=== PATIENT | female | born 1940 | race African-American/Black ===

== ENCOUNTER 2017-08-25 08:44 | Inpatient (IN) ==
[2017-08-25] MEDS ORDERED: SODIUM CHLORIDE 0.9% 1,000 ML IV STA (09:32)
[2017-08-25] MEDS ORDERED: ONDANSETRON 4 MG/2 ML VIAL IV STA (09:32)
[2017-08-25] MEDS ORDERED: ONDANSETRON 4 MG/2 ML VIAL ONE (09:49)
[2017-08-25 10:35] LABS: Apearance,Urine Slightly Hazy (Clear); Bacteria,Urine Occasional /HPF (Few); Bilirubin,Urine Negative (Negative); Blood, Urine Negative (Negative); Glucose,Urine (UA) Negative (Negative); Hyaline Casts,Urine 13 /LPF (0-3); Ketones,Urine 5 mg/dL (Negative); Mucus,Urine Few /LPF (Occasional); Nitrite,Urine Negative (Negative); Protein,Urine 30 MG/DL; RBC,Urine <1 /HPF (0-4); Squamous Epithelial Cell,Urine Occasional /HPF (0-10); Urine Color Dark Yellow (Yellow); Urine Specific Gravity 1.032 (1.001-1.035); Urine Urobilinogen < 2.0 EU/DL (0.2-1.0); WBC,Urine 3 /HPF (0-6)
[2017-08-25 11:06] LABS: Albumin 2.7 G/DL (3.4-5.0); Bilirubin,Total 0.5 MG/DL (0.2-1.0); Calcium 8.7 MG/DL (8.5-10.1); Osmolality,Calculated 268.4 MOS/KG (273-304); Potassium 4.8 MMOL/L (3.5-5.1); Total Protein 7.8 G/DL (6.4-8.3)
[2017-08-25 11:32] LABS: Basophils % 0.7 % (0.0-0.8); Eosinophils # 0.1 10*3/uL (0.0-0.87); Eosinophils % 9.5 % (0.00-10.9); Hemoglobin 9.7 GM/DL (12.0-16.0); Immature Granulocytes % 0.7 %; Immature Granulocytes Absolute 0.01 #; Lymphocytes # 0.7 10*3/uL (1.4-4.0); Lymphocytes % 48.6 % (21.3-54.2); Mean Corpuscular HGB Conc 33.4 GM/DL (32-36); Mean Corpuscular Hemoglobin 27 PG (27-34); Mean Corpuscular Volume 81.7 FL (87-102); Mean Platelet Volume 11.6 FL (9.6-12.0); Monocytes # 0.2 10*3/uL (0.11-0.8); Monocytes % 15.5 % (1.7-12.7); Neutrophils # 0.4 10*3/uL (1.4-7.4); Red Blood Count 3.55 MC/CUMM (3.8-5.5); Red Cell Distribution Width 13.9 % (9.3-17.3); White Blood Count 1.5 T/CUMM (4-12)
[2017-08-25 11:42] LABS: Platelet Count 65 T/CUMM (130-400)
[2017-08-25 12:09] LABS: Eosinophils 9 % (0-10); Giant Platelets Few; Hypochromasia 1+; Lymphocytes 52 % (20-55); Ovalocytes Slight; Platelet Estimate Decreased; Segmented Neutrophils 20 % (50-85); Total Cells Counted 100
[2017-08-25] MEDS ORDERED: chlorproMAZINE INJ 25 MG in SODIUM CHLORIDE 0.9% 100 ML IV PRN (13:36)
[2017-08-25] MEDS ORDERED: chlorproMAZINE 25 MG TABLET PO PRN (13:36)
[2017-08-25] MEDS ORDERED: ALPRAZolam 0.25 MG TABLET PO PRN (13:36)
[2017-08-25] MEDS ORDERED: chlorproMAZINE INJ 50 MG in SODIUM CHLORIDE 0.9% 100 ML IV PRN (13:36)
[2017-08-25] MEDS ORDERED: BENZTROPINE 2 MG/2 ML AMP IV PRN (13:36)
[2017-08-25] MEDS ORDERED: GLUCAGON 1 MG VIAL IM PRN (13:36)
[2017-08-25] MEDS ORDERED: ONDANSETRON 4 MG/2 ML VIAL IV PRN (13:36)
[2017-08-25] MEDS ORDERED: LACTULOSE 20 GM/30 ML UDCUP PO PRN (13:36)
[2017-08-25] MEDS ORDERED: MYLANTA/LIDO VISC 2:1 300 ML BOTTLE SWISH/SWAL PRN (13:36)
[2017-08-25] MEDS ORDERED: ALUMINUM/MAGNES/SIMETH MAX STR 30 ML UDCUP PO PRN (13:36)
[2017-08-25] MEDS ORDERED: DEXTROSE 50% 25 GM/50 ML VIAL IV PRN (13:36)
[2017-08-25] MEDS ORDERED: TEMAZEPAM 7.5 MG CAPSULE PO PRN (13:36)
[2017-08-25] MEDS ORDERED: traMADol 50 MG TABLET PO PRN (13:36)
[2017-08-25] MEDS ORDERED: MAGNESIUM HYDROXIDE SUSP 30 ML UDCUP PO PRN (13:36)
[2017-08-25] MEDS ORDERED: MYLANTA/LIDO VISC 2:1 300 ML BOTTLE SWISH/SPIT PRN (13:36)
[2017-08-25] MEDS ORDERED: diphenhydrAMINE CAP 25 MG CAPSULE PO PRN (13:36)
[2017-08-25] MEDS ORDERED: ACETAMINOPHEN 325 MG TABLET PO PRN (13:36)
[2017-08-25] MEDS ORDERED: SODIUM CHLORIDE 0.9% 1,000 ML IV SCH (13:36)
[2017-08-25] MEDS ORDERED: guaiFENesin 200 MG/10 ML UDCUP PO PRN (13:36)
[2017-08-25] MEDS ORDERED: LOPERAMIDE 2 MG CAPSULE PO PRN ×2 (13:36)
[2017-08-25] MEDS ORDERED: PROMETHAZINE INJ 25 MG in SODIUM CHLORIDE 0.9% 50 ML IV PRN (13:36)
[2017-08-25] MEDS: PANTOPRAZOLE 40 MG TABLET PO SCH (14:36)
[2017-08-25] MEDS: FILGRASTIM-SNDZ 300 MCG/0.5 ML SYRINGE SUBCUT SCH (14:36)
[2017-08-25] MEDS ORDERED: ONDANSETRON ODT 4 MG TABLET PO PRN (16:28)
[2017-08-25] MEDS ORDERED: INSULIN LISPRO 100 UNIT/ML SUBCUT SCH (16:30)
[2017-08-25] MEDS: DEXT 5% NACL 0.45% KCL 20 MEQ 20 MEQ/1,000 ML BAG IV SCH (18:43)
[2017-08-25] MEDS: LOSARTAN 25 MG TABLET PO SCH (21:14)
[2017-08-25] MEDS: CARVEDILOL 3.125 MG TABLET PO SCH (21:14)
[2017-08-26] MEDS: DEXT 5% NACL 0.45% KCL 20 MEQ 20 MEQ/1,000 ML BAG IV SCH ×2 (02:48→11:09)
[2017-08-26 05:32] LABS: Basophils % 0.4 % (0.0-0.8); Eosinophils # 0.3 10*3/uL (0.0-0.87); Hematocrit 27.1 VOL% (35.7-47.0); Hemoglobin 8.8 GM/DL (12.0-16.0); Immature Granulocytes % 0.7 %; Immature Granulocytes Absolute 0.02 #; Lymphocytes % 35.2 % (21.3-54.2); Mean Corpuscular HGB Conc 32.5 GM/DL (32-36); Mean Corpuscular Hemoglobin 27 PG (27-34); Mean Corpuscular Volume 83.4 FL (87-102); Mean Platelet Volume 11.5 FL (9.6-12.0); Monocytes # 0.4 10*3/uL (0.11-0.8); Monocytes % 14.6 % (1.7-12.7); NRBC # 0.03 10*3/uL; Neutrophils # 1.1 10*3/uL (1.4-7.4); Neutrophils % 38.1 % (38.7-73.9); Platelet Count 65 T/CUMM (130-400); Red Blood Count 3.25 MC/CUMM (3.8-5.5); Red Cell Distribution Width 14.1 % (9.3-17.3); White Blood Count 2.8 T/CUMM (4-12)
[2017-08-26 06:09] LABS: Band Neutrophils 2 % (0-10); Eosinophils 11 % (0-10); Hypochromasia 1+; Lymphocytes 36 % (20-55); Microcytosis 1+; Ovalocytes Slight; Platelet Estimate Decreased; Segmented Neutrophils 38 % (50-85); Total Cells Counted 100
[2017-08-26 06:21] LABS: Alanine Aminotransferase < 9 U/L (13-56); Alkaline Phosphatase 35 U/L (45-117); Aspartate Amino Transferase 14 U/L (0-37); Blood Urea Nitrogen 11 MG/DL (7-18); Calcium 7.4 MG/DL (8.5-10.1); Glucose 116 MG/DL (74-106); Potassium 4.2 MMOL/L (3.5-5.1); Sodium 136 MMOL/L (136-145); Total Protein 6.1 G/DL (6.4-8.3)
[2017-08-26] MEDS ORDERED: SODIUM CHLORIDE 0.9% 1,000 ML IV PRN (07:26)
[2017-08-26] MEDS: PANTOPRAZOLE 40 MG TABLET PO SCH (09:01)
[2017-08-26] MEDS: FILGRASTIM-SNDZ 300 MCG/0.5 ML SYRINGE SUBCUT SCH (09:01)
[2017-08-26] MEDS: CARVEDILOL 3.125 MG TABLET PO SCH ×2 (09:01→20:00)
[2017-08-26] MEDS: TAMOXIFEN 10 MG TABLET PO SCH (09:01)
[2017-08-26] MEDS: LOSARTAN 25 MG TABLET PO SCH (20:00)
[2017-08-27] MEDS: DEXT 5% NACL 0.45% KCL 20 MEQ 20 MEQ/1,000 ML BAG IV SCH ×2 (00:45→04:10)
[2017-08-27 04:58] LABS: Hematocrit 34.8 VOL% (35.7-47.0); Red Blood Count 4.25 MC/CUMM (3.8-5.5); White Blood Count 7.5 T/CUMM (4-12)
[2017-08-27 04:59] LABS: Basophils % 0.4 % (0.0-0.8); Eosinophils # 0.7 10*3/uL (0.0-0.87); Eosinophils % 8.9 % (0.00-10.9); Immature Granulocytes % 1.6 %; Immature Granulocytes Absolute 0.12 #; Lymphocytes # 1.9 10*3/uL (1.4-4.0); Lymphocytes % 24.6 % (21.3-54.2); Mean Corpuscular HGB Conc 34.5 GM/DL (32-36); Mean Corpuscular Hemoglobin 28 PG (27-34); Mean Corpuscular Volume 81.9 FL (87-102); Mean Platelet Volume 11.2 FL (9.6-12.0); Monocytes # 0.5 10*3/uL (0.11-0.8); Monocytes % 6.8 % (1.7-12.7); Neutrophils # 4.3 10*3/uL (1.4-7.4); Neutrophils % 57.7 % (38.7-73.9); Platelet Count 81 T/CUMM (130-400)
[2017-08-27 05:16] LABS: Albumin 2.1 G/DL (3.4-5.0); Bilirubin,Total 0.9 MG/DL (0.2-1.0); Calcium 7.3 MG/DL (8.5-10.1); Osmolality,Calculated 271.8 MOS/KG (273-304); Potassium 4.3 MMOL/L (3.5-5.1); Total Protein 6.2 G/DL (6.4-8.3)
[2017-08-27 05:18] LABS: Burr Cells Slight; Eosinophils 14 % (0-10); Hypochromasia 1+; Lymphocytes 25 % (20-55); Nucleated Red Blood Cells 1 (0-5); Ovalocytes Slight; Platelet Estimate Decreased; Segmented Neutrophils 55 % (50-85); Total Cells Counted 100
[2017-08-27 05:19] LABS: Giant Platelets Few; Microcytosis Slight
[2017-08-27] MEDS: CARVEDILOL 3.125 MG TABLET PO SCH ×2 (09:12→21:20)
[2017-08-27] MEDS: TAMOXIFEN 10 MG TABLET PO SCH (09:12)
[2017-08-27] MEDS: FILGRASTIM-SNDZ 300 MCG/0.5 ML SYRINGE SUBCUT SCH (09:12)
[2017-08-27] MEDS: PANTOPRAZOLE 40 MG TABLET PO SCH (09:12)
[2017-08-27] MEDS: LOSARTAN 25 MG TABLET PO SCH (19:23)
[2017-08-28] MEDS ORDERED: HEPARIN LOCK FLUSH 500 UNIT/5 ML SYRINGE IV ONE ×3 (04:12→13:15)
[2017-08-28 04:57] LABS: Basophils % 0.2 % (0.0-0.8); Eosinophils % 5.1 % (0.00-10.9); Hematocrit 34.3 VOL% (35.7-47.0); Hemoglobin 11.8 GM/DL (12.0-16.0); Immature Granulocytes % 3.4 %; Immature Granulocytes Absolute 0.66 #; Lymphocytes # 2.3 10*3/uL (1.4-4.0); Lymphocytes % 11.7 % (21.3-54.2); Mean Corpuscular HGB Conc 34.4 GM/DL (32-36); Mean Corpuscular Hemoglobin 28 PG (27-34); Mean Corpuscular Volume 82.3 FL (87-102); Mean Platelet Volume 11.6 FL (9.6-12.0); Monocytes # 0.9 10*3/uL (0.11-0.8); Monocytes % 4.3 % (1.7-12.7); Neutrophils # 14.8 10*3/uL (1.4-7.4); Neutrophils % 75.3 % (38.7-73.9); Platelet Count 119 T/CUMM (130-400); Red Blood Count 4.17 MC/CUMM (3.8-5.5); Red Cell Distribution Width 14.4 % (9.3-17.3); White Blood Count 19.6 T/CUMM (4-12)
[2017-08-28 05:22] LABS: Band Neutrophils 2 % (0-10); Bilirubin,Total 0.6 MG/DL (0.2-1.0); Calcium 7.5 MG/DL (8.5-10.1); Eosinophils 3 % (0-10); Lymphocytes 9 % (20-55); Potassium 4.3 MMOL/L (3.5-5.1); Segmented Neutrophils 84 % (50-85); Total Cells Counted 100; Total Protein 6.1 G/DL (6.4-8.3)
[2017-08-28 05:23] LABS: Burr Cells Slight; Giant Platelets Few; Hypochromasia 1+; Microcytosis Slight; Ovalocytes Slight; Platelet Estimate Decreased
[2017-08-28] MEDS: CARVEDILOL 3.125 MG TABLET PO SCH (09:03)
[2017-08-28] MEDS: PANTOPRAZOLE 40 MG TABLET PO SCH (09:03)
[2017-08-28] MEDS: TAMOXIFEN 10 MG TABLET PO SCH (09:03)
[2017-08-28] MEDS: FILGRASTIM-SNDZ 300 MCG/0.5 ML SYRINGE SUBCUT SCH (09:33)
[2017-08-28 11:45] VITALS: BP 95/65
== END 2017-08-28 14:00 | disposition home or self-care (01) | DRG 809 ==
LOC: N.ED 08:44 → N.EDINP 11:56 → N.4E 13:35
PROVIDERS: ADMIT Specialist; ATTEND Specialist

== ENCOUNTER 2017-12-17 07:00 | Observation (INO) ==
[2017-12-17] MEDS ORDERED: ONDANSETRON 4 MG/2 ML VIAL IV PRN (08:31)
[2017-12-17] MEDS ORDERED: BENZTROPINE 2 MG/2 ML AMP IV PRN (08:31)
[2017-12-17] MEDS ORDERED: TEMAZEPAM 7.5 MG CAPSULE PO PRN (08:31)
[2017-12-17] MEDS ORDERED: ACETAMINOPHEN 325 MG TABLET PO PRN (08:31)
[2017-12-17] MEDS ORDERED: LOPERAMIDE 2 MG CAPSULE PO PRN ×2 (08:31)
[2017-12-17] MEDS ORDERED: ALUMINUM/MAGNES/SIMETH MAX STR 30 ML UDCUP PO PRN (08:31)
[2017-12-17] MEDS ORDERED: MYLANTA/LIDO VISC 2:1 300 ML BOTTLE SWISH/SWAL PRN (08:31)
[2017-12-17] MEDS ORDERED: chlorproMAZINE INJ 50 MG in SODIUM CHLORIDE 0.9% 100 ML IV PRN (08:31)
[2017-12-17] MEDS ORDERED: chlorproMAZINE INJ 25 MG in SODIUM CHLORIDE 0.9% 100 ML IV PRN (08:31)
[2017-12-17] MEDS ORDERED: chlorproMAZINE 25 MG TABLET PO PRN (08:31)
[2017-12-17] MEDS ORDERED: MYLANTA/LIDO VISC 2:1 300 ML BOTTLE SWISH/SPIT PRN (08:31)
[2017-12-17] MEDS ORDERED: diphenhydrAMINE CAP 25 MG CAPSULE PO PRN (08:31)
[2017-12-17] MEDS ORDERED: traMADol 50 MG TABLET PO PRN (08:31)
[2017-12-17] MEDS ORDERED: MAGNESIUM HYDROXIDE SUSP 30 ML UDCUP PO PRN (08:31)
[2017-12-17] MEDS ORDERED: ALPRAZolam 0.25 MG TABLET PO PRN (08:31)
[2017-12-17] MEDS ORDERED: LACTULOSE 20 GM/30 ML UDCUP PO PRN (08:31)
[2017-12-17] MEDS ORDERED: PROMETHAZINE INJ 25 MG in SODIUM CHLORIDE 0.9% 50 ML IV PRN (08:31)
[2017-12-17] MEDS ORDERED: guaiFENesin 200 MG/10 ML UDCUP PO PRN (08:31)
[2017-12-17 08:33] LABS: Basophils # 0.1 10*3/uL (0.0-0.2); Basophils % 1.1 % (0.0-0.8); Eosinophils # 0.1 10*3/uL (0.0-0.87); Eosinophils % 2.1 % (0.00-10.9); Hematocrit 24.9 VOL% (35.7-47.0); Hemoglobin 8.6 GM/DL (12.0-16.0); Immature Granulocytes % 0.5 %; Immature Granulocytes Absolute 0.03 #; Lymphocytes # 1.4 10*3/uL (1.4-4.0); Lymphocytes % 25.5 % (21.3-54.2); Mean Corpuscular HGB Conc 34.5 GM/DL (32-36); Mean Corpuscular Hemoglobin 38 PG (27-34); Mean Corpuscular Volume 109.2 FL (87-102); Mean Platelet Volume 10.9 FL (9.6-12.0); Monocytes # 0.8 10*3/uL (0.11-0.8); Monocytes % 13.4 % (1.7-12.7); Neutrophils # 3.2 10*3/uL (1.4-7.4); Neutrophils % 57.4 % (38.7-73.9); Platelet Count 197 T/CUMM (130-400); Red Blood Count 2.28 MC/CUMM (3.8-5.5); Red Cell Distribution Width 14.2 % (9.3-17.3); White Blood Count 5.6 T/CUMM (4-12)
[2017-12-17 08:41] LABS: INR 1.1; PT Patient Result 11.4 SECS
[2017-12-17 08:57] LABS: Uric Acid 5.3 MG/DL (2.6-6.0)
[2017-12-17 09:01] LABS: Alanine Aminotransferase 11 U/L (13-56); Albumin 2.9 G/DL (3.4-5.0); Alkaline Phosphatase 33 U/L (45-117); Aspartate Amino Transferase 22 U/L (0-37); Bilirubin,Total < 0.39 MG/DL (0.2-1.0); Blood Urea Nitrogen 13 MG/DL (7-18); Calcium 8.3 MG/DL (8.5-10.1); Glucose 88 MG/DL (74-106); Osmolality,Calculated 277.4 MOS/KG (273-304); Potassium 3.9 MMOL/L (3.5-5.1); Sodium 140 MMOL/L (136-145); Total Protein 7.1 G/DL (6.4-8.3)
[2017-12-17 10:10] LABS: Apearance,Urine CLEAR (Clear); Bacteria,Urine Occasional /HPF (Few); Bilirubin,Urine Negative (Negative); Blood, Urine Negative (Negative); Glucose,Urine (UA) Negative (Negative); Ketones,Urine Negative (Negative); Nitrite,Urine Negative (Negative); Protein,Urine Negative; RBC,Urine 1 /HPF (0-4); Squamous Epithelial Cell,Urine Occasional /HPF (0-10); Urine Color Straw (Yellow); Urine Specific Gravity 1.005 (1.001-1.035); Urine Urobilinogen < 2.0 EU/DL (0.2-1.0); WBC,Urine 3 /HPF (0-6)
[2017-12-17] MEDS ORDERED: ALBUMIN 25% 12.5 GM in PREMIX 1 EACH IV PRN (11:37)
[2017-12-17] MEDS ORDERED: ALBUMIN 25% 12.5 GM/50 ML VIAL IV ONE (11:56)
[2017-12-17] MEDS ORDERED: HEPARIN LOCK FLUSH 500 UNIT/5 ML SYRINGE IV ONE ×2 (12:03→12:15)
[2017-12-17] MEDS ORDERED: MAGNESIUM SULF RIDER 2 GM in PREMIX 1 EACH IV ONE (13:33)
[2017-12-17] MEDS: ASCORBIC ACID 500 MG TABLET PO SCH ×2 (17:34→20:18)
[2017-12-17] MEDS: SPIRONOLACTONE 25 MG TABLET PO SCH (17:35)
[2017-12-17] MEDS: ASPIRIN EC 81 MG TABLET PO SCH (17:35)
[2017-12-17] MEDS: MAGNESIUM CHLORIDE 64 MG TABLET PO SCH ×2 (17:35→20:18)
[2017-12-17] MEDS: CARVEDILOL 3.125 MG TABLET PO SCH (20:18)
[2017-12-17] MEDS: LOSARTAN 25 MG TABLET PO SCH (20:18)
[2017-12-18 05:02] LABS: Basophils # 0.1 10*3/uL (0.0-0.2); Basophils % 0.9 % (0.0-0.8); Eosinophils # 0.1 10*3/uL (0.0-0.87); Eosinophils % 1.7 % (0.00-10.9); Hematocrit 22.8 VOL% (35.7-47.0); Hemoglobin 7.7 GM/DL (12.0-16.0); Immature Granulocytes % 0.3 %; Immature Granulocytes Absolute 0.02 #; Lymphocytes % 34.2 % (21.3-54.2); Mean Corpuscular HGB Conc 33.8 GM/DL (32-36); Mean Corpuscular Hemoglobin 37 PG (27-34); Mean Corpuscular Volume 110.7 FL (87-102); Mean Platelet Volume 10.6 FL (9.6-12.0); Monocytes # 0.9 10*3/uL (0.11-0.8); Monocytes % 15.4 % (1.7-12.7); Neutrophils # 2.7 10*3/uL (1.4-7.4); Neutrophils % 47.5 % (38.7-73.9); Platelet Count 187 T/CUMM (130-400); Red Blood Count 2.06 MC/CUMM (3.8-5.5); Red Cell Distribution Width 13.8 % (9.3-17.3); White Blood Count 5.7 T/CUMM (4-12)
[2017-12-18 05:23] LABS: Risk Ratio 2.18; VLDL CHOLESTEROL 16.8 MG/DL
[2017-12-18 05:25] LABS: Eosinophils 2 % (0-10); Giant Platelets Few; Hypochromasia 1+; Lymphocytes 28 % (20-55); Platelet Estimate Normal; Segmented Neutrophils 54 % (50-85); Total Cells Counted 100
[2017-12-18 05:26] LABS: Microcytosis Slight; Ovalocytes Slight
[2017-12-18] MEDS ORDERED: DEXAMETHASONE 10 MG/1 ML VIAL IV ONE (08:00)
[2017-12-18] MEDS ORDERED: SODIUM CHLORIDE 0.9% 1,000 ML IV PRN (08:00)
[2017-12-18] MEDS ORDERED: GRANISETRON 1 MG/1 ML VIAL IV SCH (08:00)
[2017-12-18] MEDS: CARVEDILOL 3.125 MG TABLET PO SCH ×2 (09:47→20:43)
[2017-12-18] MEDS: ASPIRIN EC 81 MG TABLET PO SCH (09:47)
[2017-12-18] MEDS: ASCORBIC ACID 500 MG TABLET PO SCH ×2 (09:47→20:43)
[2017-12-18] MEDS: MAGNESIUM CHLORIDE 64 MG TABLET PO SCH ×2 (09:47→20:43)
[2017-12-18] MEDS: SPIRONOLACTONE 25 MG TABLET PO SCH (09:47)
[2017-12-18] MEDS ORDERED: SODIUM CHLORIDE 0.9% IV ONE (10:00)
[2017-12-18] MEDS ORDERED: VINORELBINE IV ONE (10:00)
[2017-12-18 11:17] LABS: Calcium 7.8 MG/DL (8.5-10.1); Osmolality,Calculated 282.1 MOS/KG (273-304); Potassium 4.4 MMOL/L (3.5-5.1)
[2017-12-18] MEDS: LOSARTAN 25 MG TABLET PO SCH (20:43)
[2017-12-19 05:55] LABS: Basophils % 0.1 % (0.0-0.8); Hematocrit 31.3 VOL% (35.7-47.0); Immature Granulocytes % 1.5 %; Immature Granulocytes Absolute 0.12 #; Lymphocytes # 0.9 10*3/uL (1.4-4.0); Lymphocytes % 11.2 % (21.3-54.2); Mean Corpuscular HGB Conc 35.5 GM/DL (32-36); Mean Corpuscular Hemoglobin 35 PG (27-34); Mean Corpuscular Volume 97.8 FL (87-102); Mean Platelet Volume 11.4 FL (9.6-12.0); Monocytes # 0.8 10*3/uL (0.11-0.8); Neutrophils # 6.3 10*3/uL (1.4-7.4); Neutrophils % 77.2 % (38.7-73.9); Platelet Count 172 T/CUMM (130-400); Red Cell Distribution Width 17.9 % (9.3-17.3); White Blood Count 8.1 T/CUMM (4-12)
[2017-12-19 06:03] LABS: Hemoglobin 11.1 GM/DL (12.0-16.0)
[2017-12-19 06:34] LABS: Albumin 2.5 G/DL (3.4-5.0); Bilirubin,Total 0.9 MG/DL (0.2-1.0); Calcium 8.1 MG/DL (8.5-10.1); Osmolality,Calculated 279.3 MOS/KG (273-304); Potassium 4.1 MMOL/L (3.5-5.1); Total Protein 6.1 G/DL (6.4-8.3)
[2017-12-19] MEDS: ASCORBIC ACID 500 MG TABLET PO SCH (09:22)
[2017-12-19] MEDS: MAGNESIUM CHLORIDE 64 MG TABLET PO SCH (09:22)
[2017-12-19] MEDS: CARVEDILOL 3.125 MG TABLET PO SCH (09:23)
[2017-12-19] MEDS: SPIRONOLACTONE 25 MG TABLET PO SCH (09:23)
[2017-12-19] MEDS: ASPIRIN EC 81 MG TABLET PO SCH (09:23)
[2017-12-19 12:02] VITALS: BP 125/76
== END 2017-12-19 12:35 | disposition home or self-care (01) ==
LOC: N.4E
PROVIDERS: ADMIT Specialist; ATTEND Specialist

== ENCOUNTER 2018-03-06 11:24 | Observation (INO) ==
[2018-03-06] MEDS ORDERED: SODIUM CHLORIDE 0.9% 500 ML IV STA (12:00)
[2018-03-06] MEDS ORDERED: ONDANSETRON 4 MG/2 ML VIAL IV STA (12:02)
[2018-03-06 12:32] LABS: Basophils # 0.1 10*3/uL (0.0-0.2); Basophils % 0.8 % (0.0-0.8); Eosinophils % 0.1 % (0.00-10.9); Hematocrit 24.9 VOL% (35.7-47.0); Hemoglobin 8.2 GM/DL (12.0-16.0); Immature Granulocytes % 0.9 %; Immature Granulocytes Absolute 0.07 #; Lymphocytes # 0.7 10*3/uL (1.4-4.0); Lymphocytes % 9.5 % (21.3-54.2); Mean Corpuscular HGB Conc 32.9 GM/DL (32-36); Mean Corpuscular Hemoglobin 31 PG (27-34); Mean Corpuscular Volume 94.7 FL (87-102); Mean Platelet Volume 10.9 FL (9.6-12.0); Monocytes # 0.7 10*3/uL (0.11-0.8); Monocytes % 8.4 % (1.7-12.7); Neutrophils # 6.2 10*3/uL (1.4-7.4); Neutrophils % 80.3 % (38.7-73.9); Platelet Count 175 T/CUMM (130-400); Red Blood Count 2.63 MC/CUMM (3.8-5.5); Red Cell Distribution Width 16.4 % (9.3-17.3); White Blood Count 7.7 T/CUMM (4-12)
[2018-03-06 12:39] LABS: INR 1.1; PT Patient Result 11.3 SECS
[2018-03-06 12:52] LABS: Albumin 2.4 G/DL (3.4-5.0); Bilirubin,Total 0.6 MG/DL (0.2-1.0); Calcium 8.4 MG/DL (8.5-10.1); Osmolality,Calculated 266.5 MOS/KG (273-304); Total Protein 6.4 G/DL (6.4-8.3)
[2018-03-06 12:53] LABS: Apearance,Urine CLEAR (Clear); Bacteria,Urine Occasional /HPF (Few); Bilirubin,Urine Negative (Negative); Blood, Urine Negative (Negative); Glucose,Urine (UA) Negative (Negative); Granular Casts,Urine 11 /LPF (0-1); Hyaline Casts,Urine 12 /LPF (0-3); Ketones,Urine Negative (Negative); Mucus,Urine Occasional /LPF (Occasional); Nitrite,Urine Negative (Negative); Protein,Urine 30 MG/DL; RBC,Urine <1 /HPF (0-4); Squamous Epithelial Cell,Urine Occasional /HPF (0-10); Urine Color Yellow (Yellow); Urine Specific Gravity 1.016 (1.001-1.035); Urine Urobilinogen < 2.0 EU/DL (0.2-1.0); WBC,Urine 3 /HPF (0-6)
[2018-03-06 12:54] LABS: Band Neutrophils 1 % (0-10); Lymphocytes 8 % (20-55); Segmented Neutrophils 89 % (50-85); Total Cells Counted 100
[2018-03-06 12:55] LABS: Hypochromasia 1+; Macrocytosis Slight; Platelet Estimate Adequate
[2018-03-06 12:56] LABS: Ovalocytes Slight
[2018-03-06] MEDS ORDERED: SODIUM CHLORIDE 0.9% 1,000 ML IV STA (13:37)
[2018-03-06] MEDS ORDERED: ACETAMINOPHEN 325 MG TABLET PO PRN (15:35)
[2018-03-06] MEDS ORDERED: PROMETHAZINE 25 MG TABLET PO PRN (15:35)
[2018-03-06] MEDS ORDERED: ONDANSETRON 4 MG/2 ML VIAL IV PRN (15:35)
[2018-03-06] MEDS: SODIUM CHLORIDE 0.9% 1,000 ML IV SCH (19:24)
[2018-03-07 04:27] LABS: Basophils # 0.1 10*3/uL (0.0-0.2); Basophils % 0.9 % (0.0-0.8); Eosinophils % 0.7 % (0.00-10.9); Hematocrit 23.1 VOL% (35.7-47.0); Hemoglobin 7.6 GM/DL (12.0-16.0); Immature Granulocytes % 0.9 %; Immature Granulocytes Absolute 0.05 #; Lymphocytes # 1.1 10*3/uL (1.4-4.0); Lymphocytes % 20.9 % (21.3-54.2); Mean Corpuscular HGB Conc 32.9 GM/DL (32-36); Mean Corpuscular Hemoglobin 31 PG (27-34); Mean Corpuscular Volume 94.7 FL (87-102); Mean Platelet Volume 11.6 FL (9.6-12.0); Monocytes # 0.7 10*3/uL (0.11-0.8); Monocytes % 13.8 % (1.7-12.7); Neutrophils # 3.4 10*3/uL (1.4-7.4); Neutrophils % 62.8 % (38.7-73.9); Platelet Count 123 T/CUMM (130-400); Red Blood Count 2.44 MC/CUMM (3.8-5.5); Red Cell Distribution Width 16.3 % (9.3-17.3); White Blood Count 5.4 T/CUMM (4-12)
[2018-03-07 04:46] LABS: Calcium 8.1 MG/DL (8.5-10.1); Osmolality,Calculated 273.7 MOS/KG (273-304); Potassium 4.2 MMOL/L (3.5-5.1); Risk Ratio 5.62; Thyroid Stimulating Hormone 1.65 uIU/ml (0.358-3.74); VLDL CHOLESTEROL 29.4 MG/DL
[2018-03-07 05:04] LABS: Macrocytosis 1+; Platelet Estimate Decreased
[2018-03-07] MEDS: SODIUM CHLORIDE 0.9% 1,000 ML IV SCH (08:38)
[2018-03-07] MEDS ORDERED: PANTOPRAZOLE 40 MG TABLET PO SCH (09:00)
[2018-03-07 11:59] VITALS: BP 98/56
[2018-03-07] MEDS ORDERED: HEPARIN LOCK FLUSH 500 UNIT/5 ML SYRINGE IV ONE (12:40)
== END 2018-03-07 13:23 | disposition home or self-care (01) ==
LOC: N.ED 11:24 → N.EDINP 11:24 → N.TELEN 16:18 → N.4E 16:38

== ENCOUNTER 2018-10-20 16:59 | Inpatient (IN) ==
[2018-10-20] MEDS ORDERED: ONDANSETRON 4 MG/2 ML VIAL IV STA (17:36)
[2018-10-20] MEDS ORDERED: SODIUM CHLORIDE 0.9% 500 ML IV STA (17:36)
[2018-10-20 18:35] LABS: Basophils % 0.2 % (0.0-0.8); Eosinophils # 0.2 10*3/uL (0.0-0.87); Eosinophils % 0.9 % (0.00-10.9); Hematocrit 30.3 VOL% (35.7-47.0); Hemoglobin 9.6 GM/DL (12.0-16.0); Immature Granulocytes % 0.4 %; Immature Granulocytes Absolute 0.08 #; Lymphocytes # 0.4 10*3/uL (1.4-4.0); Lymphocytes % 2.1 % (21.3-54.2); Mean Corpuscular HGB Conc 31.7 GM/DL (32-36); Mean Corpuscular Hemoglobin 28 PG (27-34); Mean Corpuscular Volume 88.9 FL (87-102); Mean Platelet Volume 9.7 FL (9.6-12.0); Monocytes # 0.5 10*3/uL (0.11-0.8); Monocytes % 2.9 % (1.7-12.7); Neutrophils % 93.5 % (38.7-73.9); Platelet Count 313 T/CUMM (130-400); Red Blood Count 3.41 MC/CUMM (3.8-5.5); Red Cell Distribution Width 16.3 % (9.3-17.3); White Blood Count 18.2 T/CUMM (4-12)
[2018-10-20 18:51] LABS: Albumin 2.6 G/DL (3.4-5.0); Bilirubin,Total 1.9 MG/DL (0.2-1.0); Calcium 8.3 MG/DL (8.5-10.1); Osmolality,Calculated 275.7 MOS/KG (273-304); Total Protein 7.7 G/DL (6.4-8.3)
[2018-10-20 18:51] LABS: Apearance,Urine CLEAR (Clear); Bilirubin,Urine Negative (Negative); Blood, Urine Negative (Negative); Glucose,Urine (UA) Negative (Negative); Ketones,Urine Negative (Negative); Mucus,Urine Occasional /LPF (Occasional); Nitrite,Urine Negative (Negative); Protein,Urine 30 MG/DL; RBC,Urine 1 /HPF (0-4); Squamous Epithelial Cell,Urine Occasional /HPF (0-10); Urine Color Yellow (Yellow); Urine Specific Gravity 1.015 (1.001-1.035); WBC,Urine 1 /HPF (0-6)
[2018-10-20] MEDS ORDERED: cefTRIAXone 1,000 MG in SODIUM CHLORIDE 0.9% 100 ML IV STA (19:24)
[2018-10-20 19:44] LABS: Band Neutrophils 2 % (0-10); Lymphocytes 2 % (20-55); Platelet Estimate Normal; Segmented Neutrophils 95 % (50-85); Total Cells Counted 100; Toxic Granulation 2+
[2018-10-20] MEDS ORDERED: NICOTINE 21 MG/24 HR PATCH TRANSDERM PRN (20:04)
[2018-10-20] MEDS ORDERED: MORPHINE 4 MG/1 ML VIAL IV PRN (20:04)
[2018-10-20] MEDS ORDERED: BISACODYL 5 MG TABLET PO PRN (20:04)
[2018-10-20] MEDS ORDERED: ONDANSETRON 4 MG/2 ML VIAL IV PRN (20:04)
[2018-10-20] MEDS ORDERED: diphenhydrAMINE CAP 25 MG CAPSULE PO PRN (20:04)
[2018-10-20] MEDS ORDERED: SODIUM CHLORIDE 0.9% 2,200 ML IV ONE (22:06)
[2018-10-20] MEDS ORDERED: SODIUM CHLORIDE 0.9% 500 ML IV ONE (22:47)
[2018-10-20] MEDS: SODIUM CHLORIDE 0.9% 1,000 ML IV SCH (23:57)
[2018-10-21 05:41] LABS: Basophils # 0.1 10*3/uL (0.0-0.2); Basophils % 0.2 % (0.0-0.8); Hematocrit 25.6 VOL% (35.7-47.0); Hemoglobin 8.2 GM/DL (12.0-16.0); Immature Granulocytes % 4.4 %; Immature Granulocytes Absolute 1.64 #; Lymphocytes # 0.5 10*3/uL (1.4-4.0); Lymphocytes % 1.3 % (21.3-54.2); Mean Corpuscular Hemoglobin 29 PG (27-34); Mean Corpuscular Volume 89.5 FL (87-102); Mean Platelet Volume 9.9 FL (9.6-12.0); Monocytes # 2.1 10*3/uL (0.11-0.8); Monocytes % 5.5 % (1.7-12.7); Neutrophils % 88.6 % (38.7-73.9); Platelet Count 261 T/CUMM (130-400); Red Blood Count 2.86 MC/CUMM (3.8-5.5); Red Cell Distribution Width 16.7 % (9.3-17.3); White Blood Count 37.2 T/CUMM (4-12)
[2018-10-21 06:11] LABS: Band Neutrophils 8 % (0-10); Lymphocytes 1 % (20-55); Segmented Neutrophils 84 % (50-85); Total Cells Counted 100
[2018-10-21 06:12] LABS: Albumin 2.1 G/DL (3.4-5.0); Bilirubin,Total 3.5 MG/DL (0.2-1.0); Calcium 7.8 MG/DL (8.5-10.1); Hypochromasia 1+; Microcytosis 1+; Osmolality,Calculated 280.3 MOS/KG (273-304); Ovalocytes Slight; Potassium 3.8 MMOL/L (3.5-5.1); Target Cells Slight; Total Protein 6.4 G/DL (6.4-8.3)
[2018-10-21 06:13] LABS: Platelet Estimate Normal
[2018-10-21] MEDS ORDERED: VANCOMYCIN INJ 1,250 MG in SODIUM CHLORIDE 0.9% 250 ML IV SCH (07:00)
[2018-10-21] MEDS: SODIUM CHLORIDE 0.9% 1,000 ML IV SCH ×2 (09:35→21:20)
[2018-10-21] MEDS: PANTOPRAZOLE 40 MG TABLET PO SCH (09:35)
[2018-10-21] MEDS ORDERED: MAGNESIUM SULF RIDER 4 GM in PREMIX 1 EACH IV PRN (11:13)
[2018-10-21] MEDS ORDERED: MAGNESIUM SULF RIDER 2 GM in PREMIX 1 EACH IV PRN (11:13)
[2018-10-21] MEDS ORDERED: SODIUM CHLORIDE 0.9% 1,000 ML IV ONE ×2 (12:43→12:49)
[2018-10-21 13:54] LABS: Apearance,Urine CLEAR (Clear); Bilirubin,Urine Small mg/dL (Negative); Blood, Urine Negative (Negative); Glucose,Urine (UA) Negative (Negative); Ketones,Urine Negative (Negative); Nitrite,Urine Negative (Negative); Protein,Urine 30 MG/DL; RBC,Urine 2 /HPF (0-4); Squamous Epithelial Cell,Urine Occasional /HPF (0-10); Urine Color Amber (Yellow); Urine Specific Gravity 1.036 (1.001-1.035); WBC,Urine 12 /HPF (0-6)
[2018-10-21 15:52] LABS: Basophils # 0.1 10*3/uL (0.0-0.2); Basophils % 0.3 % (0.0-0.8); Eosinophils # 0.1 10*3/uL (0.0-0.87); Eosinophils % 0.4 % (0.00-10.9); Hematocrit 25.7 VOL% (35.7-47.0); Hemoglobin 8.1 GM/DL (12.0-16.0); Immature Granulocytes % 1.8 %; Immature Granulocytes Absolute 0.47 #; Lymphocytes # 0.8 10*3/uL (1.4-4.0); Mean Corpuscular HGB Conc 31.5 GM/DL (32-36); Mean Corpuscular Hemoglobin 29 PG (27-34); Mean Corpuscular Volume 90.8 FL (87-102); Mean Platelet Volume 9.5 FL (9.6-12.0); Monocytes # 1.1 10*3/uL (0.11-0.8); Neutrophils # 24.1 10*3/uL (1.4-7.4); Neutrophils % 90.5 % (38.7-73.9); Platelet Count 244 T/CUMM (130-400); Red Blood Count 2.83 MC/CUMM (3.8-5.5); White Blood Count 26.6 T/CUMM (4-12)
[2018-10-21 16:17] LABS: Blood Urea Nitrogen 11 MG/DL (7-18); Calcium 7.3 MG/DL (8.5-10.1); Glucose 134 MG/DL (74-106); Osmolality,Calculated 283.1 MOS/KG (273-304); Potassium 3.9 MMOL/L (3.5-5.1); Sodium 142 MMOL/L (136-145)
[2018-10-21 16:49] LABS: Anisocytosis Slight; Lymphocytes 2 % (20-55); Ovalocytes Slight; Segmented Neutrophils 98 % (50-85); Target Cells Slight; Total Cells Counted 100
[2018-10-21 16:50] LABS: Microcytosis Slight
[2018-10-21 16:51] LABS: Platelet Estimate Normal
[2018-10-21] MEDS ORDERED: SODIUM CHLORIDE 0.9% 1,000 ML IV PRN (17:56)
[2018-10-21] MEDS: ACETAMINOPHEN 325 MG TABLET PO PRN (18:57)
[2018-10-21] MEDS: cefTRIAXone 1,000 MG in SYRINGE 1 EACH IV SCH (20:27)
[2018-10-22] MEDS: SODIUM CHLORIDE 0.9% 1,000 ML IV SCH ×4 (00:30→20:04)
[2018-10-22 04:46] LABS: Basophils # 0.1 10*3/uL (0.0-0.2); Basophils % 0.3 % (0.0-0.8); Eosinophils # 0.5 10*3/uL (0.0-0.87); Eosinophils % 2.1 % (0.00-10.9); Hematocrit 29.2 VOL% (35.7-47.0); Hemoglobin 9.5 GM/DL (12.0-16.0); Immature Granulocytes % 1.3 %; Lymphocytes % 4.6 % (21.3-54.2); Mean Corpuscular HGB Conc 32.5 GM/DL (32-36); Mean Corpuscular Hemoglobin 28 PG (27-34); Mean Corpuscular Volume 85.9 FL (87-102); Mean Platelet Volume 9.9 FL (9.6-12.0); Monocytes # 1.1 10*3/uL (0.11-0.8); Monocytes % 4.7 % (1.7-12.7); Neutrophils # 19.4 10*3/uL (1.4-7.4); Platelet Count 242 T/CUMM (130-400); White Blood Count 22.3 T/CUMM (4-12)
[2018-10-22 05:14] LABS: Albumin 1.8 G/DL (3.4-5.0); Calcium 7.5 MG/DL (8.5-10.1); Osmolality,Calculated 280.1 MOS/KG (273-304); Potassium 3.6 MMOL/L (3.5-5.1); Total Protein 5.8 G/DL (6.4-8.3)
[2018-10-22 05:16] LABS: Calcium 7.7 MG/DL (8.5-10.1); Osmolality,Calculated 280.1 MOS/KG (273-304); Potassium 3.6 MMOL/L (3.5-5.1)
[2018-10-22 05:30] LABS: Hypochromasia Slight; Lymphocytes 6 % (20-55); Platelet Estimate Adequate; Segmented Neutrophils 93 % (50-85); Total Cells Counted 100
[2018-10-22] MEDS: ACETAMINOPHEN 325 MG TABLET PO PRN ×2 (07:23→18:57)
[2018-10-22] MEDS: PANTOPRAZOLE 40 MG TABLET PO SCH (08:59)
[2018-10-22] MEDS: cefTRIAXone 1,000 MG in SYRINGE 1 EACH IV SCH ×2 (08:59→20:03)
[2018-10-23] MEDS: PANTOPRAZOLE 40 MG TABLET PO SCH (09:36)
[2018-10-23] MEDS: SODIUM CHLORIDE 0.9% 1,000 ML IV SCH (09:38)
[2018-10-23] MEDS: cefTRIAXone 1,000 MG in SYRINGE 1 EACH IV SCH (09:42)
[2018-10-23] MEDS ORDERED: PSEUDOEPHEDRINE 30 MG TABLET PO PRN (10:37)
[2018-10-23] MEDS ORDERED: FLUTICASONE 50 MCG NASAL SPRAY 16 GM BOTTLE BOTH NARES SCH (11:00)
[2018-10-23 12:20] LABS: Basophils # 0.1 10*3/uL (0.0-0.2); Basophils % 0.3 % (0.0-0.8); Eosinophils # 0.5 10*3/uL (0.0-0.87); Eosinophils % 2.9 % (0.00-10.9); Hematocrit 34.9 VOL% (35.7-47.0); Immature Granulocytes % 1.4 %; Immature Granulocytes Absolute 0.23 #; Lymphocytes # 1.1 10*3/uL (1.4-4.0); Lymphocytes % 6.9 % (21.3-54.2); Mean Corpuscular HGB Conc 33.2 GM/DL (32-36); Mean Corpuscular Hemoglobin 28 PG (27-34); Mean Corpuscular Volume 85.1 FL (87-102); Monocytes # 1.2 10*3/uL (0.11-0.8); Monocytes % 7.3 % (1.7-12.7); Neutrophils # 13.4 10*3/uL (1.4-7.4); Neutrophils % 81.2 % (38.7-73.9); Platelet Count 245 T/CUMM (130-400); Red Cell Distribution Width 17.3 % (9.3-17.3); White Blood Count 16.5 T/CUMM (4-12)
[2018-10-23 12:22] LABS: Hemoglobin 11.6 GM/DL (12.0-16.0)
[2018-10-23 16:44] VITALS: BP 129/86
== END 2018-10-23 16:30 | disposition home or self-care (01) | DRG 871 ==
LOC: N.ED 16:59 → N.EDINP 20:04 → N.3E 20:49
PROVIDERS: ADMIT Internal Medicine; ATTEND Internal Medicine

== ENCOUNTER 2020-07-15 01:12 | Inpatient (IN) ==
[2020-07-15 01:57] LABS: Basophils # 0.1 10*3/uL (0.0-0.2); Basophils % 0.3 % (0.0-0.8); Eosinophils % 0.1 % (0.00-10.9); Hematocrit 26.2 VOL% (35.7-47.0); Hemoglobin 8.8 GM/DL (12.0-16.0); Immature Granulocytes % 1.2 %; Immature Granulocytes Absolute 0.21 #; Lymphocytes # 1.8 10*3/uL (1.4-4.0); Lymphocytes % 9.6 % (21.3-54.2); Mean Corpuscular HGB Conc 33.6 GM/DL (32-36); Mean Platelet Volume 9.3 FL (9.6-12.0); Monocytes % 6.4 % (1.7-12.7); Neutrophils % 82.4 % (38.7-73.9); Platelet Count 353 T/CUMM (130-400); Red Blood Count 3.12 MC/CUMM (3.8-5.5); Red Cell Distribution Width 15.9 % (9.3-17.3); White Blood Count 18.2 T/CUMM (4-12)
[2020-07-15] MEDS ORDERED: FUROSEMIDE 40 MG/4 ML VIAL IV STA (02:09)
[2020-07-15 02:24] LABS: Ferritin 1143.1 ng/ml (8-252)
[2020-07-15 02:35] LABS: Albumin 1.6 G/DL (3.4-5.0); Bilirubin,Total 0.4 MG/DL (0.2-1.0); Calcium 8.2 MG/DL (8.5-10.1); Total Protein 9.5 G/DL (6.4-8.3)
[2020-07-15 02:55] LABS: Bacteria,Urine Occasional /HPF (Few); Bilirubin,Urine Negative (Negative); Blood, Urine Small mg/dL (Negative); Glucose,Urine (UA) Negative (Negative); Granular Casts,Urine 8 /LPF (0-1); Hyaline Casts,Urine 31 /LPF (0-3); Ketones,Urine Negative (Negative); Mucus,Urine Occasional /LPF (Occasional); Nitrite,Urine Negative (Negative); Protein,Urine 100 MG/DL; RBC,Urine 2 /HPF (0-4); Squamous Epithelial Cell,Urine Occasional /HPF (0-10); Urine Appearance Slightly Hazy (Clear); Urine Color Yellow (Yellow); Urine Specific Gravity 1.027 (1.001-1.035); Urine Urobilinogen < 2.0 EU/DL (0.2-1.0)
[2020-07-15] MEDS ORDERED: AZITHROMYCIN INJ 500 MG in SODIUM CHLORIDE 0.9% 250 ML IV STA (02:59)
[2020-07-15] MEDS ORDERED: POTASSIUM CHLORIDE RIDER 10 MEQ in PREMIX 1 EACH IV PRN (03:09)
[2020-07-15] MEDS ORDERED: POTASSIUM CHLORIDE 20 MEQ TABLET PO STA (03:09)
[2020-07-15] MEDS ORDERED: MORPHINE 4 MG/1 ML VIAL IV PRN (03:11)
[2020-07-15] MEDS ORDERED: hydrALAZINE 20 MG/1 ML VIAL IV PRN (03:11)
[2020-07-15] MEDS ORDERED: DEXTROSE 50% 25 GM/50 ML VIAL IV PRN (03:11)
[2020-07-15] MEDS ORDERED: NICOTINE 21 MG/24 HR PATCH TRANSDERM PRN (03:11)
[2020-07-15] MEDS ORDERED: GLUCAGON 1 MG VIAL IM PRN (03:11)
[2020-07-15] MEDS ORDERED: ONDANSETRON 4 MG/2 ML VIAL IV PRN (03:11)
[2020-07-15] MEDS ORDERED: diphenhydrAMINE CAP 25 MG CAPSULE PO PRN (03:11)
[2020-07-15 03:15] LABS: INR 1.4; PT Patient Result 14.3 SECS (9.8-11.9); Partial Thromboplastin Time 37.1 SECS (23.9-33.8)
[2020-07-15] MEDS: DEXAMETHASONE 4 MG/1 ML VIAL IV SCH ×2 (05:42→16:24)
[2020-07-15] MEDS: SODIUM CHLORIDE 0.9% 1,000 ML IV SCH ×2 (05:46→12:00)
[2020-07-15] MEDS: cefTRIAXone 1,000 MG in SYRINGE 1 EACH IV SCH (05:46)
[2020-07-15] MEDS: POTASSIUM CHLORIDE 20 MEQ TABLET PO SCH ×3 (10:08→20:18)
[2020-07-15] MEDS: INSULIN REGULAR 100 UNIT/ML SUBCUT SCH ×4 (10:08→22:40)
[2020-07-15] MEDS: CLINDAMYCIN INJ 600 MG in PREMIX 1 EACH IV SCH ×2 (16:24→20:18)
[2020-07-15] MEDS ORDERED: AZITHROMYCIN 250 MG TABLET PO SCH (21:00)
[2020-07-16] MEDS: CLINDAMYCIN INJ 600 MG in PREMIX 1 EACH IV SCH ×4 (01:35→19:21)
[2020-07-16] MEDS: SODIUM CHLORIDE 0.9% 1,000 ML IV SCH ×2 (01:47→11:52)
[2020-07-16] MEDS: guaiFENesin/DM ER 600-30 MG TABLET PO PRN (01:48)
[2020-07-16] MEDS ORDERED: LEVALBUTEROL 1.25 MG/3 ML NEB RESP TX PRN (05:06)
[2020-07-16] MEDS: DEXAMETHASONE 4 MG/1 ML VIAL IV SCH ×2 (05:25→16:54)
[2020-07-16] MEDS: cefTRIAXone 1,000 MG in SYRINGE 1 EACH IV SCH (05:28)
[2020-07-16 05:57] LABS: Basophils % 0.1 % (0.0-0.8); Hematocrit 24.4 VOL% (35.7-47.0); Immature Granulocytes % 1.8 %; Immature Granulocytes Absolute 0.32 #; Lymphocytes # 0.9 10*3/uL (1.4-4.0); Lymphocytes % 5.1 % (21.3-54.2); Mean Corpuscular HGB Conc 32.8 GM/DL (32-36); Mean Corpuscular Volume 83.8 FL (87-102); Monocytes % 5.3 % (1.7-12.7); Neutrophils % 87.7 % (38.7-73.9); Platelet Count 311 T/CUMM (130-400); Red Blood Count 2.91 MC/CUMM (3.8-5.5); Red Cell Distribution Width 16.1 % (9.3-17.3); White Blood Count 18.1 T/CUMM (4-12)
[2020-07-16 06:11] LABS: ABG Base Excess -0.2 MMOL/L (-2.5-2.5); ABG HCO3 22.3 MMOL/L (20-26); ABG Oxygen Saturation 95.7 % (95-100); ABG PCO2 28.3 MM HG (35-48); ABG PH 7.515 (7.35-7.45); ABG PO2 76.4 MM HG (80-95); ABG TCO2 23.2 MMOL/L (23-27)
[2020-07-16 06:14] LABS: Calcium 8.2 MG/DL (8.5-10.1); Osmolality,Calculated 281.8 MOS/KG (273-304)
[2020-07-16 06:26] LABS: Albumin 1.6 G/DL (3.4-5.0); Bilirubin,Total 0.4 MG/DL (0.2-1.0); Calcium 8.3 MG/DL (8.5-10.1); Osmolality,Calculated 280.8 MOS/KG (273-304); Total Protein 9.1 G/DL (6.4-8.3)
[2020-07-16] MEDS: INSULIN REGULAR 100 UNIT/ML SUBCUT SCH ×4 (08:11→20:10)
[2020-07-16] MEDS: POTASSIUM CHLORIDE 20 MEQ TABLET PO SCH (08:12)
[2020-07-16] MEDS: AZITHROMYCIN INJ 500 MG in SODIUM CHLORIDE 0.9% 250 ML IV SCH (11:07)
[2020-07-16 12:31] LABS: ABG Base Excess -1.6 MMOL/L (-2.5-2.5); ABG HCO3 22.2 MMOL/L (20-26); ABG Oxygen Saturation 25.7 % (95-100); ABG PCO2 36.7 MM HG (35-48); ABG PH 7.401 (7.35-7.45); ABG TCO2 21.7 MMOL/L (23-27)
[2020-07-16 12:33] LABS: ABG PO2 21.2 MM HG (80-95)
[2020-07-16 13:10] LABS: ABG Base Excess -1.9 MMOL/L (-2.5-2.5); ABG HCO3 22.9 MMOL/L (20-26); ABG Oxygen Saturation 99.8 % (95-100); ABG PCO2 27.2 MM HG (35-48); ABG PH 7.483 (7.35-7.45); ABG TCO2 18.1 MMOL/L (23-27)
[2020-07-16] MEDS ORDERED: ENOXAPARIN 80 MG/0.8 ML SYRINGE SUBCUT ONE (16:51)
[2020-07-16] MEDS: LORazepam 2 MG/1 ML VIAL IV PRN (16:54)
[2020-07-16 17:15] LABS: Basophils % 0.1 % (0.0-0.8); Hemoglobin 7.3 GM/DL (12.0-16.0); Immature Granulocytes % 3.4 %; Immature Granulocytes Absolute 0.65 #; Lymphocytes # 0.6 10*3/uL (1.4-4.0); Lymphocytes % 3.2 % (21.3-54.2); Mean Corpuscular HGB Conc 31.7 GM/DL (32-36); Mean Corpuscular Volume 89.1 FL (87-102); Mean Platelet Volume 9.6 FL (9.6-12.0); Monocytes % 4.8 % (1.7-12.7); Neutrophils % 88.5 % (38.7-73.9); Platelet Count 280 T/CUMM (130-400); Red Blood Count 2.58 MC/CUMM (3.8-5.5); Red Cell Distribution Width 16.7 % (9.3-17.3)
[2020-07-16 17:19] LABS: ABG Base Excess -4.6 MMOL/L (-2.5-2.5); ABG HCO3 19.7 MMOL/L (20-26); ABG Oxygen Saturation 24.5 % (95-100); ABG PCO2 37.6 MM HG (35-48); ABG PH 7.346 (7.35-7.45); ABG TCO2 19.5 MMOL/L (23-27)
[2020-07-16 17:22] LABS: ABG PO2 23.1 MM HG (80-95)
[2020-07-16 17:40] LABS: Calcium 8.5 MG/DL (8.5-10.1); Osmolality,Calculated 278.8 MOS/KG (273-304); Troponin I 0.12 NG/ML (0.00-0.045)
[2020-07-16 18:21] LABS: Acanthocytes 1+; Hypochromasia 4+; Lymphocytes 2 % (20-55); Myelocytes 2 %; Segmented Neutrophils 93 % (50-85); Total Cells Counted 100
[2020-07-16 22:45] LABS: ABG Base Excess -4.2 MMOL/L (-2.5-2.5); ABG HCO3 20.9 MMOL/L (20-26); ABG Oxygen Saturation 99.2 % (95-100); ABG PCO2 28.9 MM HG (35-48); ABG PH 7.434 (7.35-7.45); ABG TCO2 18.3 MMOL/L (23-27); Allen Test Positive
[2020-07-16] MEDS ORDERED: SODIUM CHLORIDE 0.9% 1,000 ML IV PRN (23:44)
[2020-07-17] MEDS: DEXAMETHASONE 4 MG/1 ML VIAL IV SCH ×2 (05:56→18:00)
[2020-07-17] MEDS: CLINDAMYCIN INJ 600 MG in PREMIX 1 EACH IV SCH ×4 (05:58→23:57)
[2020-07-17] MEDS: cefTRIAXone 1,000 MG in SYRINGE 1 EACH IV SCH (06:00)
[2020-07-17 07:24] LABS: Basophils % 0.1 % (0.0-0.8); NRBC # 0.04 10*3/uL
[2020-07-17 07:29] LABS: Hematocrit 28.5 VOL% (35.7-47.0); Immature Granulocytes % 3.3 %; Immature Granulocytes Absolute 0.53 #; Lymphocytes # 0.9 10*3/uL (1.4-4.0); Lymphocytes % 5.7 % (21.3-54.2); Mean Corpuscular HGB Conc 33.7 GM/DL (32-36); Mean Corpuscular Volume 83.8 FL (87-102); Mean Platelet Volume 9.9 FL (9.6-12.0); Monocytes % 3.6 % (1.7-12.7); Neutrophils % 87.3 % (38.7-73.9); Platelet Count 227 T/CUMM (130-400); White Blood Count 16.2 T/CUMM (4-12)
[2020-07-17 07:31] LABS: Hemoglobin 9.6 GM/DL (12.0-16.0)
[2020-07-17 07:43] LABS: Calcium 8.8 MG/DL (8.5-10.1); Osmolality,Calculated 281.7 MOS/KG (273-304)
[2020-07-17 07:47] LABS: Hypochromasia 1+; Lymphocytes 6 % (20-55); Ovalocytes Slight; Platelet Estimate Adequate; Segmented Neutrophils 88 % (50-85); Total Cells Counted 100
[2020-07-17 08:07] LABS: Albumin 1.7 G/DL (3.4-5.0); Bilirubin,Total 0.7 MG/DL (0.2-1.0); Calcium 8.4 MG/DL (8.5-10.1); Osmolality,Calculated 280.7 MOS/KG (273-304); Total Protein 9.1 G/DL (6.4-8.3)
[2020-07-17] MEDS: carvediloL 3.125 MG TABLET PO SCH ×2 (09:00→18:00)
[2020-07-17] MEDS: ASPIRIN EC 81 MG TABLET PO SCH (09:00)
[2020-07-17] MEDS: AZITHROMYCIN INJ 500 MG in SODIUM CHLORIDE 0.9% 250 ML IV SCH (11:07)
[2020-07-17] MEDS: INSULIN REGULAR 100 UNIT/ML SUBCUT SCH ×4 (12:26→20:14)
[2020-07-17] MEDS: ENOXAPARIN 40 MG/0.4 ML SYRINGE SUBCUT SCH (13:53)
[2020-07-17] MEDS ORDERED: FUROSEMIDE 20 MG/2 ML VIAL IV ONE (15:03)
[2020-07-17] MEDS ORDERED: LEVALBUTEROL 1.25 MG/3 ML NEB RESP TX SCH (19:00)
[2020-07-17] MEDS: LEVALBUTEROL 1.25 MG/3 ML NEB RESP TX SCH (19:00)
[2020-07-17] MEDS: ASCORBIC ACID 500 MG TABLET PO SCH (20:14)
[2020-07-17] MEDS: LORazepam 2 MG/1 ML VIAL IV PRN (23:58)
[2020-07-18] MEDS: LEVALBUTEROL 1.25 MG/3 ML NEB RESP TX SCH ×4 (01:02→19:22)
[2020-07-18 05:51] LABS: Basophils % 0.1 % (0.0-0.8); Hematocrit 28.8 VOL% (35.7-47.0); Hemoglobin 9.8 GM/DL (12.0-16.0); Immature Granulocytes % 2.8 %; Immature Granulocytes Absolute 0.38 #; Lymphocytes % 7.1 % (21.3-54.2); Mean Corpuscular Volume 82.8 FL (87-102); Mean Platelet Volume 10.2 FL (9.6-12.0); Monocytes % 6.6 % (1.7-12.7); NRBC # 0.21 10*3/uL; Neutrophils % 83.4 % (38.7-73.9); Platelet Count 206 T/CUMM (130-400); Red Blood Count 3.48 MC/CUMM (3.8-5.5); Red Cell Distribution Width 16.3 % (9.3-17.3); White Blood Count 13.4 T/CUMM (4-12)
[2020-07-18] MEDS: cefTRIAXone 1,000 MG in SYRINGE 1 EACH IV SCH (06:00)
[2020-07-18] MEDS: DEXAMETHASONE 4 MG/1 ML VIAL IV SCH ×2 (06:01→17:17)
[2020-07-18] MEDS: CLINDAMYCIN INJ 600 MG in PREMIX 1 EACH IV SCH ×3 (06:05→17:16)
[2020-07-18 06:07] LABS: Calcium 8.8 MG/DL (8.5-10.1); Osmolality,Calculated 282.8 MOS/KG (273-304)
[2020-07-18 06:11] LABS: Albumin 1.6 G/DL (3.4-5.0); Bilirubin,Total 1.9 MG/DL (0.2-1.0); Osmolality,Calculated 284.7 MOS/KG (273-304)
[2020-07-18] MEDS: INSULIN REGULAR 100 UNIT/ML SUBCUT SCH ×4 (08:05→21:15)
[2020-07-18] MEDS: carvediloL 3.125 MG TABLET PO SCH ×2 (10:00→17:16)
[2020-07-18] MEDS: ASCORBIC ACID 500 MG TABLET PO SCH ×2 (10:00→23:20)
[2020-07-18] MEDS: ASPIRIN EC 81 MG TABLET PO SCH (10:00)
[2020-07-18] MEDS: DEXT 5% NACL 0.45% KCL 20 MEQ 20 MEQ/1,000 ML BAG IV SCH (10:12)
[2020-07-18] MEDS ORDERED: ALBUTEROL/IPRATROPIUM 3 ML NEB RESP TX PRN (11:02)
[2020-07-18] MEDS: LORazepam 2 MG/1 ML VIAL IV PRN ×2 (13:06→21:15)
[2020-07-18] MEDS: ENOXAPARIN 40 MG/0.4 ML SYRINGE SUBCUT SCH (17:16)
[2020-07-19] MEDS: CLINDAMYCIN INJ 600 MG in PREMIX 1 EACH IV SCH ×2 (00:09→05:54)
[2020-07-19] MEDS: LEVALBUTEROL 1.25 MG/3 ML NEB RESP TX SCH ×4 (01:32→19:48)
[2020-07-19] MEDS: LORazepam 2 MG/1 ML VIAL IV PRN (01:50)
[2020-07-19 02:53] LABS: ABG Base Excess -3.2 MMOL/L (-2.5-2.5); ABG HCO3 21.7 MMOL/L (20-26); ABG Oxygen Saturation 98.9 % (95-100); ABG PCO2 30.3 MM HG (35-48); ABG PH 7.432 (7.35-7.45); ABG TCO2 18.4 MMOL/L (23-27); Allen Test Positive; Pt O2 Delivery Device CPAP
[2020-07-19] MEDS: DEXAMETHASONE 4 MG/1 ML VIAL IV SCH ×2 (05:52→16:37)
[2020-07-19] MEDS: cefTRIAXone 1,000 MG in SYRINGE 1 EACH IV SCH (05:53)
[2020-07-19 06:26] LABS: Albumin 1.6 G/DL (3.4-5.0); Bilirubin,Total 1.6 MG/DL (0.2-1.0); Calcium 9.1 MG/DL (8.5-10.1); Osmolality,Calculated 288.8 MOS/KG (273-304); Total Protein 9.5 G/DL (6.4-8.3)
[2020-07-19 06:39] LABS: Basophils % 0.2 % (0.0-0.8); Hemoglobin 10.3 GM/DL (12.0-16.0); Immature Granulocytes % 2.2 %; Immature Granulocytes Absolute 0.36 #; Lymphocytes # 1.3 10*3/uL (1.4-4.0); Lymphocytes % 7.7 % (21.3-54.2); Mean Corpuscular HGB Conc 34.3 GM/DL (32-36); Mean Platelet Volume 10.1 FL (9.6-12.0); Monocytes % 6.2 % (1.7-12.7); NRBC # 0.34 10*3/uL; Neutrophils % 83.7 % (38.7-73.9); Platelet Count 150 T/CUMM (130-400); Red Blood Count 3.57 MC/CUMM (3.8-5.5); Red Cell Distribution Width 16.6 % (9.3-17.3); White Blood Count 16.4 T/CUMM (4-12)
[2020-07-19 06:45] LABS: Osmolality,Calculated 287.8 MOS/KG (273-304)
[2020-07-19] MEDS: DEXT 5% NACL 0.45% KCL 20 MEQ 20 MEQ/1,000 ML BAG IV SCH ×4 (07:45→21:49)
[2020-07-19] MEDS: INSULIN REGULAR 100 UNIT/ML SUBCUT SCH ×4 (07:48→21:50)
[2020-07-19] MEDS: carvediloL 3.125 MG TABLET PO SCH ×2 (09:06→16:37)
[2020-07-19] MEDS: ASPIRIN EC 81 MG TABLET PO SCH (09:06)
[2020-07-19] MEDS: ASCORBIC ACID 500 MG TABLET PO SCH ×2 (09:17→21:49)
[2020-07-19] MEDS: ENOXAPARIN 40 MG/0.4 ML SYRINGE SUBCUT SCH (16:37)
[2020-07-20] MEDS: LEVALBUTEROL 1.25 MG/3 ML NEB RESP TX SCH ×2 (00:20→07:57)
[2020-07-20 04:59] LABS: Basophils % 0.1 % (0.0-0.8); Hematocrit 29.7 VOL% (35.7-47.0); Hemoglobin 10.2 GM/DL (12.0-16.0); Immature Granulocytes % 1.7 %; Immature Granulocytes Absolute 0.35 #; Lymphocytes # 0.9 10*3/uL (1.4-4.0); Lymphocytes % 4.2 % (21.3-54.2); Mean Corpuscular HGB Conc 34.3 GM/DL (32-36); Mean Corpuscular Volume 83.2 FL (87-102); Mean Platelet Volume 10.6 FL (9.6-12.0); Monocytes % 5.6 % (1.7-12.7); NRBC # 0.35 10*3/uL; Neutrophils % 88.4 % (38.7-73.9); Platelet Count 179 T/CUMM (130-400); Red Blood Count 3.57 MC/CUMM (3.8-5.5); Red Cell Distribution Width 16.3 % (9.3-17.3); White Blood Count 21.1 T/CUMM (4-12)
[2020-07-20] MEDS: DEXAMETHASONE 4 MG/1 ML VIAL IV SCH ×2 (05:17→16:25)
[2020-07-20 05:20] LABS: Albumin 1.4 G/DL (3.4-5.0); Bilirubin,Total 1.4 MG/DL (0.2-1.0); Calcium 8.6 MG/DL (8.5-10.1); Osmolality,Calculated 290.7 MOS/KG (273-304); Total Protein 8.4 G/DL (6.4-8.3)
[2020-07-20] MEDS: cefTRIAXone 1,000 MG in SYRINGE 1 EACH IV SCH (05:22)
[2020-07-20 05:26] LABS: Hypochromasia 1+; Lymphocytes 5 % (20-55); Nucleated Red Blood Cells 5 (0-5); Platelet Estimate Adequate; Segmented Neutrophils 89 % (50-85); Total Cells Counted 100
[2020-07-20] MEDS ORDERED: MEPERIDINE 50 MG/1 ML VIAL IM ONE (07:00)
[2020-07-20] MEDS ORDERED: PROMETHAZINE 25 MG/1 ML VIAL IM ONE (07:00)
[2020-07-20] MEDS ORDERED: GLYCOPYRROLATE 0.4 MG/2 ML VIAL IM ONE (07:00)
[2020-07-20] MEDS: DEXT 5% NACL 0.45% KCL 20 MEQ 20 MEQ/1,000 ML BAG IV SCH ×4 (07:26→21:30)
[2020-07-20] MEDS ORDERED: LIDOCAINE 2% 20 ML VIAL RESP TX ONE (07:30)
[2020-07-20] MEDS ORDERED: LIDOCAINE 1% 20 ML VIAL MISC INJ ONE (07:30)
[2020-07-20] MEDS ORDERED: MIDAZOLAM 2 MG/2 ML VIAL IV ONE (07:30)
[2020-07-20] MEDS ORDERED: LIDOCAINE 2% VISCOUS 100 ML BOTTLE SWISH/SPIT ONE (07:30)
[2020-07-20] MEDS: INSULIN REGULAR 100 UNIT/ML SUBCUT SCH ×4 (08:07→21:30)
[2020-07-20] MEDS: carvediloL 3.125 MG TABLET PO SCH ×2 (08:33→16:25)
[2020-07-20] MEDS: ASCORBIC ACID 500 MG TABLET PO SCH ×2 (08:33→21:32)
[2020-07-20] MEDS: ASPIRIN EC 81 MG TABLET PO SCH (08:33)
[2020-07-20] MEDS: DORNASE ALFA 2.5 MG/2.5 ML VIAL RESP TX SCH ×2 (09:08→19:36)
[2020-07-20] MEDS: ALBUTEROL/IPRATROPIUM 3 ML NEB RESP TX SCH ×2 (13:15→19:36)
[2020-07-20] MEDS: ENOXAPARIN 40 MG/0.4 ML SYRINGE SUBCUT SCH (16:25)
[2020-07-21] MEDS: ALBUTEROL/IPRATROPIUM 3 ML NEB RESP TX SCH ×4 (00:55→20:00)
[2020-07-21] MEDS: cefTRIAXone 1,000 MG in SYRINGE 1 EACH IV SCH (05:40)
[2020-07-21] MEDS: DEXAMETHASONE 4 MG/1 ML VIAL IV SCH ×2 (05:46→17:01)
[2020-07-21 06:26] LABS: Basophils % 0.1 % (0.0-0.8); Hematocrit 30.8 VOL% (35.7-47.0); Hemoglobin 9.9 GM/DL (12.0-16.0); Immature Granulocytes % 1.4 %; Immature Granulocytes Absolute 0.26 #; Lymphocytes # 0.7 10*3/uL (1.4-4.0); Lymphocytes % 3.7 % (21.3-54.2); Mean Corpuscular HGB Conc 32.1 GM/DL (32-36); Mean Corpuscular Volume 87.7 FL (87-102); Mean Platelet Volume 10.9 FL (9.6-12.0); Monocytes % 5.9 % (1.7-12.7); Neutrophils % 88.9 % (38.7-73.9); Platelet Count 193 T/CUMM (130-400); Red Blood Count 3.51 MC/CUMM (3.8-5.5); Red Cell Distribution Width 17.3 % (9.3-17.3); White Blood Count 18.4 T/CUMM (4-12)
[2020-07-21 07:03] LABS: Lymphocytes 1 % (20-55); Nucleated Red Blood Cells 1 (0-5); Segmented Neutrophils 96 % (50-85); Total Cells Counted 100
[2020-07-21 07:04] LABS: Anisocytosis 1+; Hypochromasia 2+
[2020-07-21 07:05] LABS: Target Cells Few
[2020-07-21] MEDS: DORNASE ALFA 2.5 MG/2.5 ML VIAL RESP TX SCH ×2 (07:07→20:00)
[2020-07-21 07:14] LABS: Albumin 1.5 G/DL (3.4-5.0); Bilirubin,Total 0.6 MG/DL (0.2-1.0); Calcium 9.1 MG/DL (8.5-10.1); Osmolality,Calculated 291.7 MOS/KG (273-304); Total Protein 8.6 G/DL (6.4-8.3)
[2020-07-21] MEDS: carvediloL 3.125 MG TABLET PO SCH ×2 (09:37→16:57)
[2020-07-21] MEDS: ASPIRIN EC 81 MG TABLET PO SCH (09:37)
[2020-07-21] MEDS: ASCORBIC ACID 500 MG TABLET PO SCH ×2 (09:38→21:50)
[2020-07-21] MEDS: INSULIN REGULAR 100 UNIT/ML SUBCUT SCH ×4 (09:40→21:49)
[2020-07-21] MEDS ORDERED: TUBERCULIN SKIN TEST 0.1 ML SYRINGE INTRADERM ONE (11:22)
[2020-07-21] MEDS: ACETAMINOPHEN 325 MG TABLET PO PRN (13:39)
[2020-07-21] MEDS: DEXT 5% NACL 0.45% KCL 20 MEQ 20 MEQ/1,000 ML BAG IV SCH ×2 (16:37→16:56)
[2020-07-21] MEDS: ENOXAPARIN 40 MG/0.4 ML SYRINGE SUBCUT SCH (16:52)
[2020-07-22] MEDS: ALBUTEROL/IPRATROPIUM 3 ML NEB RESP TX SCH ×4 (02:30→19:23)
[2020-07-22] MEDS: DEXAMETHASONE 4 MG/1 ML VIAL IV SCH (05:54)
[2020-07-22] MEDS: DEXT 5% NACL 0.45% KCL 20 MEQ 20 MEQ/1,000 ML BAG IV SCH ×2 (05:54→20:49)
[2020-07-22] MEDS: cefTRIAXone 1,000 MG in SYRINGE 1 EACH IV SCH (05:54)
[2020-07-22 06:16] LABS: Basophils % 0.1 % (0.0-0.8); Hematocrit 29.1 VOL% (35.7-47.0); Hemoglobin 9.3 GM/DL (12.0-16.0); Immature Granulocytes % 1.3 %; Lymphocytes # 0.5 10*3/uL (1.4-4.0); Lymphocytes % 3.5 % (21.3-54.2); Mean Corpuscular Volume 88.2 FL (87-102); Mean Platelet Volume 11.1 FL (9.6-12.0); Monocytes % 5.4 % (1.7-12.7); NRBC # 0.08 10*3/uL; Neutrophils % 89.7 % (38.7-73.9); Platelet Count 167 T/CUMM (130-400); Red Cell Distribution Width 17.6 % (9.3-17.3)
[2020-07-22 06:32] LABS: Albumin 1.4 G/DL (3.4-5.0); Bilirubin,Total 1.4 MG/DL (0.2-1.0); Calcium 8.5 MG/DL (8.5-10.1); Osmolality,Calculated 288.8 MOS/KG (273-304); Total Protein 7.9 G/DL (6.4-8.3)
[2020-07-22] MEDS: DORNASE ALFA 2.5 MG/2.5 ML VIAL RESP TX SCH ×2 (07:25→19:23)
[2020-07-22 08:19] LABS: Band Neutrophils 2 % (0-10); Hypersegmented Neutrophil 2+; Hypochromasia 2+; Lymphocytes 2 % (20-55); Nucleated Red Blood Cells 1 (0-5); Platelet Estimate Normal; Segmented Neutrophils 90 % (50-85); Total Cells Counted 100
[2020-07-22] MEDS: INSULIN REGULAR 100 UNIT/ML SUBCUT SCH ×4 (09:44→20:48)
[2020-07-22] MEDS: ASCORBIC ACID 500 MG TABLET PO SCH ×2 (09:45→20:43)
[2020-07-22] MEDS: carvediloL 3.125 MG TABLET PO SCH ×2 (09:45→17:10)
[2020-07-22] MEDS: ASPIRIN EC 81 MG TABLET PO SCH (09:45)
[2020-07-22] MEDS: ENOXAPARIN 40 MG/0.4 ML SYRINGE SUBCUT SCH (15:20)
[2020-07-22] MEDS: ACETAMINOPHEN 325 MG TABLET PO PRN (20:46)
[2020-07-23] MEDS: ALBUTEROL/IPRATROPIUM 3 ML NEB RESP TX SCH ×4 (01:15→19:24)
[2020-07-23 06:41] LABS: Basophils % 0.1 % (0.0-0.8); Eosinophils % 0.1 % (0.00-10.9); Hematocrit 31.7 VOL% (35.7-47.0); Hemoglobin 10.3 GM/DL (12.0-16.0); Immature Granulocytes % 1.2 %; Immature Granulocytes Absolute 0.19 #; Lymphocytes # 0.8 10*3/uL (1.4-4.0); Mean Corpuscular HGB Conc 32.5 GM/DL (32-36); Mean Corpuscular Volume 87.6 FL (87-102); Monocytes % 5.8 % (1.7-12.7); NRBC # 0.04 10*3/uL; Neutrophils % 87.8 % (38.7-73.9); Platelet Count 180 T/CUMM (130-400); Red Blood Count 3.62 MC/CUMM (3.8-5.5); Red Cell Distribution Width 17.9 % (9.3-17.3); White Blood Count 15.8 T/CUMM (4-12)
[2020-07-23 07:06] LABS: Albumin 1.6 G/DL (3.4-5.0); Bilirubin,Total 0.9 MG/DL (0.2-1.0); Calcium 8.7 MG/DL (8.5-10.1); Osmolality,Calculated 275.2 MOS/KG (273-304); Total Protein 8.4 G/DL (6.4-8.3)
[2020-07-23] MEDS: DORNASE ALFA 2.5 MG/2.5 ML VIAL RESP TX SCH ×2 (07:15→19:24)
[2020-07-23] MEDS ORDERED: DEXAMETHASONE 4 MG/1 ML VIAL IV SCH (09:00)
[2020-07-23] MEDS: DEXT 5% NACL 0.45% KCL 20 MEQ 20 MEQ/1,000 ML BAG IV SCH ×3 (09:07→23:54)
[2020-07-23] MEDS: carvediloL 3.125 MG TABLET PO SCH ×2 (09:08→16:58)
[2020-07-23] MEDS: ASCORBIC ACID 500 MG TABLET PO SCH ×2 (09:08→21:34)
[2020-07-23] MEDS: INSULIN REGULAR 100 UNIT/ML SUBCUT SCH ×4 (09:08→21:34)
[2020-07-23] MEDS: guaiFENesin/DM ER 600-30 MG TABLET PO PRN (09:08)
[2020-07-23] MEDS: ASPIRIN EC 81 MG TABLET PO SCH (09:09)
[2020-07-23] MEDS: ENOXAPARIN 40 MG/0.4 ML SYRINGE SUBCUT SCH (14:41)
[2020-07-24] MEDS: ACETAMINOPHEN 325 MG TABLET PO PRN (03:28)
[2020-07-24 06:03] LABS: Basophils % 0.1 % (0.0-0.8); Eosinophils # 0.1 10*3/uL (0.0-0.87); Eosinophils % 0.5 % (0.00-10.9); Hematocrit 30.5 VOL% (35.7-47.0); Hemoglobin 10.1 GM/DL (12.0-16.0); Immature Granulocytes % 1.1 %; Immature Granulocytes Absolute 0.13 #; Lymphocytes # 0.6 10*3/uL (1.4-4.0); Lymphocytes % 5.1 % (21.3-54.2); Mean Corpuscular HGB Conc 33.1 GM/DL (32-36); Mean Corpuscular Volume 87.9 FL (87-102); Mean Platelet Volume 11.2 FL (9.6-12.0); Monocytes % 6.1 % (1.7-12.7); Neutrophils % 87.1 % (38.7-73.9); Platelet Count 183 T/CUMM (130-400); Red Blood Count 3.47 MC/CUMM (3.8-5.5); Red Cell Distribution Width 18.2 % (9.3-17.3); White Blood Count 12.2 T/CUMM (4-12)
[2020-07-24 07:31] LABS: Albumin 1.5 G/DL (3.4-5.0); Bilirubin,Total 0.6 MG/DL (0.2-1.0); Calcium 8.6 MG/DL (8.5-10.1); Osmolality,Calculated 272.5 MOS/KG (273-304); Total Protein 8.3 G/DL (6.4-8.3)
[2020-07-24] MEDS: ALBUTEROL/IPRATROPIUM 3 ML NEB RESP TX SCH ×4 (07:50→17:52)
[2020-07-24 08:55] LABS: Albumin 1.5 G/DL (3.4-5.0); Bilirubin,Total 0.6 MG/DL (0.2-1.0); Calcium 8.4 MG/DL (8.5-10.1); Osmolality,Calculated 270.7 MOS/KG (273-304)
[2020-07-24] MEDS: INSULIN REGULAR 100 UNIT/ML SUBCUT SCH ×4 (11:38→22:17)
[2020-07-24] MEDS: ASPIRIN EC 81 MG TABLET PO SCH (12:53)
[2020-07-24] MEDS: predniSONE 20 MG TABLET PO SCH (12:53)
[2020-07-24] MEDS: carvediloL 3.125 MG TABLET PO SCH ×2 (12:53→16:45)
[2020-07-24] MEDS: ASCORBIC ACID 500 MG TABLET PO SCH ×2 (12:53→22:18)
[2020-07-24] MEDS: ENOXAPARIN 40 MG/0.4 ML SYRINGE SUBCUT SCH (16:44)
[2020-07-24] MEDS: DEXT 5% NACL 0.45% KCL 20 MEQ 20 MEQ/1,000 ML BAG IV SCH ×2 (16:44)
[2020-07-25] MEDS: ALBUTEROL/IPRATROPIUM 3 ML NEB RESP TX SCH ×2 (00:15→07:15)
[2020-07-25] MEDS: DEXT 5% NACL 0.45% KCL 20 MEQ 20 MEQ/1,000 ML BAG IV SCH (05:47)
[2020-07-25 06:09] LABS: Basophils % 0.1 % (0.0-0.8); Eosinophils % 0.3 % (0.00-10.9); Hematocrit 30.5 VOL% (35.7-47.0); Hemoglobin 9.9 GM/DL (12.0-16.0); Immature Granulocytes % 0.9 %; Immature Granulocytes Absolute 0.08 #; Lymphocytes # 0.5 10*3/uL (1.4-4.0); Lymphocytes % 5.3 % (21.3-54.2); Mean Corpuscular HGB Conc 32.5 GM/DL (32-36); Mean Corpuscular Volume 89.4 FL (87-102); Mean Platelet Volume 10.9 FL (9.6-12.0); Monocytes % 7.2 % (1.7-12.7); Neutrophils % 86.2 % (38.7-73.9); Platelet Count 184 T/CUMM (130-400); Red Blood Count 3.41 MC/CUMM (3.8-5.5); Red Cell Distribution Width 18.3 % (9.3-17.3); White Blood Count 8.8 T/CUMM (4-12)
[2020-07-25 06:34] LABS: Albumin 1.6 G/DL (3.4-5.0); Bilirubin,Total 1.1 MG/DL (0.2-1.0); Calcium 8.6 MG/DL (8.5-10.1); Osmolality,Calculated 268.7 MOS/KG (273-304); Total Protein 8.2 G/DL (6.4-8.3)
[2020-07-25] MEDS: INSULIN REGULAR 100 UNIT/ML SUBCUT SCH ×2 (08:35→12:12)
[2020-07-25] MEDS: ASPIRIN EC 81 MG TABLET PO SCH (08:36)
[2020-07-25] MEDS: ASCORBIC ACID 500 MG TABLET PO SCH (08:36)
[2020-07-25] MEDS: predniSONE 20 MG TABLET PO SCH (08:36)
[2020-07-25] MEDS: carvediloL 3.125 MG TABLET PO SCH (08:36)
[2020-07-25] MEDS: ACETAMINOPHEN 325 MG TABLET PO PRN (10:28)
[2020-07-25] MEDS ORDERED: HEPARIN LOCK FLUSH 500 UNIT/5 ML SYRINGE IV ONE ×2 (11:13→11:30)
[2020-07-25 13:04] VITALS: BP 121/69
== END 2020-07-25 13:30 | disposition swing bed (61) | DRG 193 ==
LOC: N.ED 01:12 → N.EDINP 03:11 → SUATTDRO 03:11 → N.5E 06:50 → N.ICU 07-16 17:12 → N.4E 07-17 22:33
PROVIDERS: ADMIT Internal Medicine; ATTEND Internal Medicine